=== PATIENT | male | born 1965 | race Caucasian/White ===

== ENCOUNTER 2017-03-15 15:36 | Emergency (ER) | payer MEDICAID ==
[~2017-03-15] VITALS: Ht 180.3 cm; Wt 88.9 kg
[~2017-03-15 15:36] MED LIST: ARIP2TAB2 PO; BUSP15TA PO; CEFD300C37 PO; DIVA125T2 PO; GABA600T2 PO; NICO-487 TD; ZIPR40CA2 PO
[2017-03-15] MEDS ORDERED: CHLORDIAZEPOXIDE 25 MG CAPSULE PO ONE (16:30)
[2017-03-15 17:17] VITALS: BP 120/80
== END 2017-03-15 18:19 | disposition home or self-care (01) ==
LOC: ED 18:13
DX: F10.239 Alcohol dependence with withdrawal, unspecified (principal); F20.9 Schizophrenia, unspecified; F31.9 Bipolar disorder, unspecified
CPT/HCPCS: 99283

== ENCOUNTER 2017-04-02 18:50 | Emergency (ER) | payer MEDICAID ==
[~2017-04-02] VITALS: Ht 177.8 cm; Wt 67.4 kg
[2017-04-02 19:12] VITALS: BP 120/76
[2017-04-02] MEDS ORDERED: KETOROLAC 30 MG/1 ML ONE (19:37)
[2017-04-02] MEDS ORDERED: DIAZEPAM 5 MG TABLET ONE (19:37)
[2017-04-02] MEDS ORDERED: KETOROLAC 30 MG/1 ML IM ONE (20:00)
[2017-04-02] MEDS ORDERED: DIAZEPAM 5 MG TABLET PO ONE (20:00)
== END 2017-04-02 20:16 | disposition home or self-care (01) ==
LOC: ED 20:10
DX: S23.3XXA Sprain of ligaments of thoracic spine, initial encounter (principal); F20.9 Schizophrenia, unspecified; F31.9 Bipolar disorder, unspecified; G62.9 Polyneuropathy, unspecified; F19.10 Other psychoactive substance abuse, uncomplicated; X58.XXXA Exposure to other specified factors, initial encounter; Y93.89 Activity, other specified; Y92.89 Other specified places as the place of occurrence of the external cause; Y99.8 Other external cause status
CPT/HCPCS: 72072; 96372; 99284; J1885